=== PATIENT | male | born 2005 | race Two or more races ===

== ENCOUNTER 2025-05-05 22:32 | Emergency (ER) | payer MEDICAID, SELFPAY ==
[2025-05-05 22:34] VITALS: BMI 34.7
[2025-05-05 23:25] VITALS: BP 116/66; PULSE 83; RESP 18; TEMP 36.6; O2SAT 99
--- NOTE | 2025-05-05 23:37 | EDNOTE_ITS ---
ED Abdominal Pain RME/HPI General Chief Complaint: Abdominal Pain Stated complaint: LEFT FLANK PAIN Time seen by provider: 05/05/25 23:40 Arrival date/time: 05/05/25 22:32 RME / HPI RME / HPI narrative: This section includes all my notes and documentations, including HPI, PE, and ED course. Claudio Neal MD HPI: 19yo male with no significant past medical or surgical history presents to the ED for complaints of left flank pain, nausea, and vomiting for the last few days. No radiation or migration. Patient's pain has been progressively getting worse. He is not on any medications. No other complaints reported. ROS: All negative except as documented in HPI. Physical Exam: General: Alert and oriented. Actively vomiting. Appears uncomfortable. Eyes: Conjunctivae and lids clear. ENT: No nasal congestion. Neck: Supple. Heart: RRR. Lungs: No respiratory distress. Good air movement. No rhonchi, wheezing, rales. Abdomen: Soft and nontender. Normal bowel sounds. No distension. No rebound or guarding. Back: No CVA tenderness. Skin: Warm and dry. Neuro: Alert and oriented X 3. I reviewed all diagnostic test results. My review of the CT abdomen pelvis report is 3 mm obstructing calculus in the left proximal ureter causing mild hydroureteronephrosis. Blood tests were unremarkable. UA remarkable for hematuria. At this point, diagnoses include kidney stone on the left side. Treatment here included Toradol, morphine, Zofran, NS, and Flomax. Significant improvement noted. Urine strainer dispensed. Recommended a trial of outpatient treatment. Based on my best medical judgment, made decision no further evaluation or treatment indicated at this time. Patient understands and agrees to the discharge instructions customized and printed, see below. Discharge Instructions from Dr. Neal: --Your symptoms are due to a 3 mm right kidney stone. It is outside the kidney. It is trying to pass into your bladder. --Increase oral fluid to flush your kidneys. Maintain clear urine. if it's dark or yellow then increase oral fluid. If you don't do this, you won't pass it. --Take Flomax to help decrease spasms to increase the chance of passing it. --Take Zofran as needed for nausea or vomiting. --Take Ketorolac/Toradol for pain control. And Tylenol with Codeine. If you are in severe pain, you won't pass it. --Strain your urine so you can catch the stone when you pass it. --See a private doctor on 05/08/2025 for recheck. Take the stone with you for analysis because certain stones can be prevented. If you didn't pass it, ask for referral to see urologist. Who will take the stone out for you. --Seek immediate medical care with fever over 100.4, persistent vomiting despite Zofran, intolerable pain, or with any concerns. Claudio Neal MD Related Data Home Medications ?Medication ?Instructions ?Recorded ?Confirmed albuterol sulfate 90 mcg/actuation 2 puff inhalation Q ID Asthma 06/08/1906/08 aerosol inhaler (ProAir HFA) Previous Rx's ?Medication ?Instructions ?Recorded acetaminophen 300 mg-codeine 30 mg 2 tab PO Q8H PRN pa in #20 tabs 05/06/25 tablet ketorolac 10 mg tablet 10 mg PO Q8H PRN pain 5 days #10 05/06/25 tabs ondansetron 4 mg disintegrating 4 mg PO TID PRN nausea and 05/06/25 tablet vomiting 30 days #10 tabs tamsulosin 0.4 mg capsule (Flomax) 0.4 mg PO QDAY 7 da ys #7 caps 05/06/25 Allergies Allergy/AdvReac Type Severity Reaction Status Date / Time No Known Allergies Allergy Verified 06/16/22 12:31 Review of Systems Review of Systems Systems Reviewed: All systems reviewed, normal except as documented Past Medical History Past Medical History CARDIAC: Negative Congestive Heart Failure RESPIRATORY: Negative Chronic Obstructive Pulmonary Disease (COPD) GENITOURINARY: Negative Renal Disease ENDOCRINE: Negative Diabetes Mellitus Type 1 or Diabetes Mellitus Type 2 Social History SMOKING STATUS: Never smoker ED Exam Narrative Physical exam: As noted in HPI. Course Quality Measures none Orders Category Date Time Status Miscellaneous Nursing Order NOW Care 05/06/25 03:07 Active Saline [Insert IV] NOW Care 05/05/25 23:[address] abdomen pelvis wo con Stat Exams 05/05/25 23:39 Taken Amylase Stat Lab 05/05/25 23:55 Completed Bilirubin,Direct Stat Lab 05/05/25 23:55 Completed CBC Stat Lab 05/05/25 23:55 Completed CMP [Comprehensive Metabolic Panel] Stat Lab 05/05/25 23:55 Completed Lipase Stat Lab 05/05/25 23:55 Completed Magnesium Stat Lab 05/05/25 23:55 Completed UA, C/S IF [Urinalysis, C/S if Indicated] Stat Lab 05/06/25 01:32 Completed Morphine Inj Med 05/05/25 23:38 Discontinued 4 mg IVP X1 ONE Ondansetron Inj [Zofran Inj] Med 05/05/25 23:38 Discontinued 4 mg IVP X1 ONE Sodium Chloride 0.9% 1000 ml [Ns] 1,000 ml Med 05/05/25 23:38 Discontinued IV 999 mls/hr Sodium Chloride 0.9% 1000 ml [Ns] 1,000 ml Med 05/06/25 02:08 Discontinued IV 999 mls/hr Tamsulosin HCl [Flomax] Med 05/06/25 03:18 Discontinued 0.4 mg PO X1 ONE Vital Signs Vital signs: Vital Signs Temperature 98 F 05/05/25 23:25 Pulse Rate 83 05/05/25 23:25 Respiratory Rate 18 05/05/25 23:25 Blood Pressure 116/66 05/05/25 23:25 Pulse Oximetry (%) 99 05/05/25 23:25 Oxygen Delivery Method Room Air 05/05/25 23:25 Abdominal Pain MDM MDM Narrative MDM Narrative:: 19yo male with no significant past medical or surgical history presents to the ED for complaints of left flank pain, nausea, and vomiting for the last few days. No radiation or migration. Patient's pain has been progressively getting worse. He is not on any medications. No other complaints reported. Patient data External records reviewed:: [facility] previous records (Per chart review, patient was seen here on 06/17/22 for tachycardia.) Clinical information provided by:: patient Social determinants that could affect healthcare access:: none Patient has the following chronic illnesses:: none How is presenting disease/condition affected by chronic disease/condition?: no chronic disease Evaluation data The following diagnostics were reviewed and interpreted by me:: lab results and radiology exam(s) Lab and/or radiology exams considered but not ordered:: none Interpretation Summary: I reviewed all diagnostic test results. My review of the CT abdomen pelvis report is 3 mm obstructing calculus in the left proximal ureter causing mild hydroureteronephrosis. Blood tests were unremarkable. UA remarkable for hematuria. Medications / Prescriptions Medications or Prescriptions considered but not ordered:: none Medication administrations:: Medication Administration History Discontinued Medications Sodium Chloride (Ns) 1,000 mls @ 999 mls/hr IV .Q1H1M ONE Stop: 05/06/25 00:38 Last Infusion: 05/06/25 01:25 Dose: Infused Documented By: Admin: 05/06/25 00:04 Dose: 999 mls/hr Documented By: PALOMO Sodium Chloride (Ns) 1,000 mls @ 999 mls/hr IV .Q1H1M ONE Stop: 05/06/25 03:08 Last Admin: 05/06/25 02:37 Dose: 999 mls/hr Documented By: PALOMO Morphine Sulfate (Morphine Sulf Inj 10 Mg/Ml Vial) 4 mg IVP X1 ONE Stop: 05/05/25 23:39 Last Admin: 05/06/25 00:04 Dose: 4 mg Documented By: PALOMO Ondansetron HCl (Ondansetron Inj 2 Mg/Ml Inj 2 Ml) 4 mg IVP X1 ONE; Protocol Stop: 05/05/25 23:39 Last Admin: 05/06/25 00:03 Dose: 4 mg Documented By: PALOMO Tamsulosin HCl (Tamsulosin Hcl 0.4 Mg Capsule) 0.4 mg PO X1 ONE Stop: 05/06/25 03:19 Morphine, Zofran, NS, Flomax, Toradol. Consultations Consultation(s) initiated? (list below): No Diagnosis Differential diagnosis abdominal pain: acute appendicitis, calculus of kidney, constipation, pancreatitis and small bowel obstruction Most likely diagnosis given after review of the tests above:: Left kidney stone Admission Indicated Admission indicated?: not indicated Explain why admission is indicated or not indicated:: With significant improvement and no condition needing emergent intervention, there was no indication for admission. Admission Request Was there a request for admission?: No Disposition Plan Disposition Plan: Discharge Discharge Attestation Discharge Attestation: The patient and all family members were given an opportunity to ask questions and understood the discharge instructions. Discharge instructions specifically effects, indications for sooner follow up or return to the emergency department, and the expected course of current diagnosis. Patient condition: Stable Discharge Plan Plan Patient Disposition: HOME (Self Care) Prescriptions/Referrals Prescriptions/Med Rec: New acetaminophen-codeine 300-30 mg tablet 2 tab PO Q8H MDD 6 PRN (Reason: pain) Qty: 20 0RF ketorolac 10 mg tablet 10 mg PO Q8H PRN (Reason: pain) 5 Days Qty: 10 0RF ondansetron 4 mg tablet,disintegrating 4 mg PO TID PRN (Reason: nausea and vomiting) 30 Days Qty: 10 0RF tamsulosin [Flomax] 0.4 mg capsule 0.4 mg PO QDAY 7 Days Qty: 7 0RF No Action albuterol sulfate [ProAir HFA] 90 mcg/actuation Hfa Aerosol Inhaler 2 puff INHALATION QID Problem List Clinical Impression: Kidney stone on left side Patient/Caregiver Discharge Instructions Discharge Activity: activity as tolerated Education Materials: ED Kidney Stone w/ Colic Additional Instructions: Discharge Instructions from Dr. Neal: --Your symptoms are due to a 3 mm right kidney stone.? It is outside the kidney.? It is trying to pass into your bladder.? --Increase oral fluid to flush your kidneys.? Maintain clear urine. if it's dark or yellow then increase oral fluid.? If you don't do this, you won't pass it.? --Take Flomax to help decrease spasms to increase the chance of passing it.? --Take Zofran as needed for nausea or vomiting. --Take Ketorolac/Toradol for pain control.? And Tylenol with Codeine.? If you are in severe pain, you won't pass it.?? --Strain your urine so you can catch the stone when you pass it.? --See a private doctor on 05/08/2025 for recheck. Take the stone with you for analysis because certain stones can be prevented.? If you didn't pass it, ask for referral to see urologist.? Who will take the stone out for you. --Seek immediate medical care with fever over 100.4, persistent vomiting despite Zofran, intolerable pain, or with any concerns.?? Print Language: Welsh Stand Alone Forms: Anna Award Info., Patient Portal Info Letter
--- NOTE | 2025-05-05 23:39 | XR_ITS ---
Examination: CT abdomen and pelvis without contrast. Coronal 3-D reconstructions. Sagittal 2-D reconstructions. Date and time of exam:May 06, 2025 0143 hours INDICATIONS: Left-sided flank pain beginning 3 days ago CTDI: vol (mGy): 9.55 DLP: (mGycm): 585 Technique: Axial images of the abdomen have been obtained, 3 mm slice thickness Intravenous contrast material has not been administered. Low dose protocols were performed. One or more of the following dose reduction techniques were used; automated exposure control, adjustment of the mA and/or KV according to patient size, use of iterative reconstruction technique. Findings: 6 mm low-density liver lesion likely cyst No gallstones Spleen not enlarged No pancreatic mass Minimal left hydronephrosis, 3 mm proximal left ureteral calculus Aorta normal size Normal appendix No bladder mass or bladder calculi L5-S1 3 mm central lumbar disc bulge IMPRESSION: Minimal left hydronephrosis, 3 mm proximal left ureteral calculus
[2025-05-06] MEDS: ONDANSETRON INJ 2 MG/ML INJ 2 ML 4 MG IVP (00:03)
[2025-05-06] MEDS: SODIUM CHLORIDE 0.9% 1000 ML 1,000 ML 999 ML IV ×2 (00:04→02:37)
[2025-05-06] MEDS: MORPHINE SULF INJ 10 MG/ML VIAL 4 MG IVP (00:04)
[2025-05-06 00:39] LABS: Basophils # (Auto) 0.1 Thou/mm3 (0.0-0.2); Basophils % (Auto) 0 % (0-2.5); Eosinophils # (Auto) 0.1 Thou/mm3 (0.0-0.5); Eosinophils % (Auto) 0 % (0-10); Hematocrit 39.6 % (41.0-53.0); Hemoglobin 14.4 g/dL (13.5-16.0); Immature Granulocytes Auto 0.09 Thou/mm3 (0.00-0.00); Lymphocytes # (Auto) 2.7 Thou/mm3 (1.0-4.8); Lymphocytes % (Auto) 18 % (10-50); Mean Corpuscular HGB Conc 36.4 g/dl (31.0-37.0); Mean Corpuscular Hemoglobin 31.7 pg (25.0-35.0); Mean Corpuscular Volume 87 fL (80-100); Monocytes # (Auto) 0.8 Thou/mm3 (0.0-0.8); Monocytes % (Auto) 5 % (0-12); Neutrophils # (Auto) 11.1 Thou/mm3 (1.8-7.7); Neutrophils % (Auto) 75 % (37-80); Nucleated Red Blood Cell # 0.00 Thou/mm3 (0.00-0.00); Nucleated Red Blood Cell % 0 /100 WBC (0); Platelet Count 321 Thou/mm3 (140-440); RDW Standard Deviation 40.2 fL (35.1-43.9); Red Blood Count 4.54 Miln/mm3 (4.50-5.90); White Blood Count 14.8 Thou/mm3 (3.8-10.6)
[2025-05-06 00:53] LABS: Alanine Aminotransferase 25 U/L (10-49); Albumin, Serum 4.6 gm/dL (3.5-5.0); Albumin/Globulin Ratio 1.7 (1.2-2.2); Alkaline Phosphatase 87 U/L (46-116); Amylase 88 U/L (30-118); Anion Gap 11 (7-16); Aspartate Amino Transferase 34 U/L (0-34); BUN/Creatinine Ratio 11 Ratio (12-20); Bilirubin,Direct 0.2 mg/dL (0.0-0.3); Bilirubin,Total 0.4 mg/dL (0.3-1.2); Blood Urea Nitrogen 12 mg/dL (9-23); Calcium 9.1 mg/dL (8.3-10.6); Calcium (Corrected) 9.1 mg/dL (8.5-10.1); Carbon Dioxide 26.7 mMol/L (20.0-31.0); Chloride 104 mMol/L (98-107); Creatinine (Component) 1.1 mg/dL (0.6-1.3); Estimated Creatinine Clearance 108.4 mL/min (>60); Globulin 2.7 gm/dL (2.3-3.5); Glucose 118 mg/dL (74-106); Lipase 30 U/L (12-53); Magnesium 1.6 mg/dL (1.6-2.6); Osmolality,Calculated 283 (275-295); Potassium 4.0 mMol/L (3.4-5.1); Sodium 142 mMol/L (136-145); Total Protein 7.3 gm/dL (5.7-8.2); eGFR > 60 See Note
--- NOTE | 2025-05-06 02:49 | PRELIM_ITS ---
CT scan of the abdomen and pelvis without intravenous contrast (axial sections with sagittal and coronal reformats) May 06, 2025 0143 hours Clinical History: Left flank pain Comparison: No prior study is available for comparison. Findings: The lung bases are clear. A small hypodense lesion is noted in the liver, which is too small to characterize. There is a 3 mm obstructing calculus in the left proximal ureter (axial images 101/288) causing mild hydroureteronephrosis and periureteric/perinephric fat stranding. The gallbladder, pancreas, spleen, right kidney and adrenals are unremarkable on this noncontrast study. No evidence of bowel obstruction. A moderate amount of fecal material is present in the colon. The appendix is within normal limits (coronal image 54- 64/155). There is no mesenteric or retroperitoneal adenopathy. The urinary bladder is unremarkable. There is no free fluid or free air. The osseous structures are unremarkable. Impression: A 3 mm obstructing calculus in the left proximal ureter causing mild hydroureteronephrosis. Recommend clinical correlation. Other findings as described above. Report Electronically Signed By: Carter Castellano 05/06/2025 2:48:36 AM [EST]
[2025-05-06 02:50] LABS: Collection Type, Urine Clean Catch; Squamous Epithelial Cell,Urine 0 /hpf (0-5)
[2025-05-06 03:19] LABS: Bacteria,Urine Rare; Bilirubin,Urine Negative (Negative); Blood,Urine 3+ (Negative); Clarity,Urine Clear (Clear/Hazy); Color,Urine Colorless (Lt Yel-Yel); Culture Indicated,Urine Not Indicated; Glucose, Urine Negative (Negative); Ketones,Urine Trace (Negative); Leukocyte Esterase,Urine Negative (Negative); Nitrite,Urine Negative (Negative); PH,Urine 7.0 (5.0-7.0); Protein,Urine Negative (Neg - Trace); RBC,Urine 4 /hpf (0-3); Specific Gravity,Urine 1.009 (1.001-1.035); Urobilinogen,Urine Negative mg/dL (0.0-1.0); WBC,Urine 1 /hpf (0-5)
[2025-05-06] MEDS: TAMSULOSIN HCL 0.4 MG CAPSULE PO (04:57)
[2025-05-06 05:00] VITALS: BP 131/88; PULSE 80; RESP 18; TEMP 36.7; O2SAT 98
== END 2025-05-06 05:33 | disposition home or self-care (01) ==
LOC: SERX 05-06 03:57
PROVIDERS: Emergency Provider Emergency Medicine
DX: N13.2 Hydronephrosis with renal and ureteral calculous obstruction (principal)
CPT/HCPCS: 36415; 74176; 80053; 81001; 82150; 82248; 83690; 83735; 85025; 96361; 96374; 96375; J2270; J2405; J7030; A9270

== ENCOUNTER 2025-09-08 15:29 | Emergency (ER) | payer MEDICAID, SELFPAY ==
[2025-09-08 15:40] VITALS: BP 140/86; PULSE 82; RESP 20; TEMP 36.9; O2SAT 97; BMI 31.3
--- NOTE | 2025-09-08 15:48 | XR_ITS ---
Examination: CT abdomen and pelvis without contrast. Coronal 3-D reconstructions. Sagittal 2-D reconstructions. Date and time of exam: September 08, 2025, 1633 hours, comparison May 06, 2025 INDICATIONS: Left upper abdominal pain beginning 5 days ago, history kidney stones CTDI: vol (mGy): 8.51 DLP: (mGycm): 553 Technique: Axial images of the abdomen have been obtained, 3 mm slice thickness Intravenous contrast material has not been administered. Low dose protocols were performed. One or more of the following dose reduction techniques were used; automated exposure control, adjustment of the mA and/or KV according to patient size, use of iterative reconstruction technique. Findings: 6 mm liver cyst No Intermatic biliary duct dilatation No gallstones Spleen not enlarged No pancreatic or adrenal mass No renal or ureteral calculi, no hydronephrosis Aorta normal size Small fat-containing umbilical hernia Normal appendix No bowel obstruction or diverticulitis Normal seminal vesicles, no prostatomegaly Urinary bladder intact No inguinal hernias IMPRESSION: No renal or ureteral calculi, no hydronephrosis Normal appendix No bowel obstruction diverticulitis or free air
--- NOTE | 2025-09-08 15:48 | XR_ITS ---
EXAMINATION: PA chest single view TECHNIQUE: Upright PA chest single view Date and time: September 08, 2025, 1623 hours, comparison June 16, 2022 INDICATIONS: Shortness of breath chest pain today. FINDINGS: Normal heart size Lungs are clear. Osseous structures are intact. IMPRESSION: No active disease
--- NOTE | 2025-09-08 15:54 | PD.EDRME ---
Rapid Medical Screening Exam [facility] Arrival date/time: 09/08/25 15:29 20-year-old male with no known medical history presents to the emergency room with a chief complaint of left upper quadrant abdominal pain that radiates to his left ribs x 3 days I have greeted and performed a focused initial assessment of this patient. A comprehensive ED assessment and evaluation of the patient, analysis of all test results, and completion of the medical decision making process will be conducted by additional ED providers. Chief Complaint: Nausea/Vomiting/Diarrhea Time Seen by Provider: 09/08/25 15:34 Vital signs: Vital Signs Temperature 98.5 F 09/08/25 15:40 Pulse Rate 82 09/08/25 15:40 Respiratory Rate 20 09/08/25 15:40 Blood Pressure 140/86 H 09/08/25 15:40 Pulse Oximetry (%) 97 09/08/25 15:40 Oxygen Delivery Method Room Air 09/08/25 15:40 Vital signs reviewed by provider: Yes Exam: Left upper quadrant abdominal pain with palpation Strong and regular rhythm S1 and S2 noted. Clear bilateral lung sounds Clinical Impression: Pancreatitis/gastroenteritis
[2025-09-08 16:38] LABS: Basophils # (Auto) 0.1 Thou/mm3 (0.0-0.2); Basophils % (Auto) 0 % (0-2.5); Eosinophils # (Auto) 0.0 Thou/mm3 (0.0-0.5); Eosinophils % (Auto) 0 % (0-10); Hematocrit 46.4 % (41.0-53.0); Hemoglobin 15.8 g/dL (13.5-16.0); Immature Granulocytes Auto 0.09 Thou/mm3 (0.00-0.00); Lymphocytes # (Auto) 1.7 Thou/mm3 (1.0-4.8); Lymphocytes % (Auto) 15 % (10-50); Mean Corpuscular HGB Conc 34.1 g/dl (31.0-37.0); Mean Corpuscular Hemoglobin 31.1 pg (25.0-35.0); Mean Corpuscular Volume 91 fL (80-100); Monocytes # (Auto) 0.7 Thou/mm3 (0.0-0.8); Monocytes % (Auto) 6 % (0-12); Neutrophils # (Auto) 9.1 Thou/mm3 (1.8-7.7); Neutrophils % (Auto) 77 % (37-80); Nucleated Red Blood Cell # 0.00 Thou/mm3 (0.00-0.00); Nucleated Red Blood Cell % 0 /100 WBC (0); Platelet Count 416 Thou/mm3 (140-440); RDW Standard Deviation 41.9 fL (35.1-43.9); Red Blood Count 5.08 Miln/mm3 (4.50-5.90); White Blood Count 11.8 Thou/mm3 (3.8-10.6)
[2025-09-08] MEDS: ONDANSETRON ODT 4 MG TABRAP PO (16:48)
[2025-09-08 16:56] LABS: Alanine Aminotransferase 54 U/L (10-49); Albumin, Serum 5.1 gm/dL (3.5-5.0); Albumin/Globulin Ratio 2.2 (1.2-2.2); Alkaline Phosphatase 89 U/L (46-116); Anion Gap 12 (7-16); Aspartate Amino Transferase 42 U/L (0-34); BUN/Creatinine Ratio 10 Ratio (12-20); Bilirubin,Total 0.5 mg/dL (0.3-1.2); Blood Urea Nitrogen 9 mg/dL (9-23); Calcium 8.9 mg/dL (8.3-10.6); Calcium (Corrected) 8.9 mg/dL (8.5-10.1); Carbon Dioxide 28.3 mMol/L (20.0-31.0); Chloride 102 mMol/L (98-107); Creatinine (Component) 0.9 mg/dL (0.6-1.3); Estimated Creatinine Clearance 133.8 mL/min (>60); Globulin 2.3 gm/dL (2.3-3.5); Glucose 117 mg/dL (74-106); Lipase 22 U/L (12-53); Osmolality,Calculated 282 (275-295); Potassium 4.0 mMol/L (3.4-5.1); Sodium 142 mMol/L (136-145); Total Protein 7.4 gm/dL (5.7-8.2); eGFR > 60 See Note
--- NOTE | 2025-09-08 17:11 | EDNOTE_ITS ---
Nausea/Vomit./Diarrhea-RME/HPI General Chief complaint: Nausea/Vomiting/Diarrhea Stated complaint: VOMITING X 1 WK Time Seen by Provider: 09/08/25 15:34 Source: patient Arrival date/time: 09/08/25 15:29 20-year-old male with no known medical history presents to the emergency room with a chief complaint of vomiting and left upper quadrant abdominal pain x 1 week. Mode of arrival: ambulatory Limitations: no limitations RME / HPI RME / HPI Narrative: 09/08/25 15:29 20-year-old male with no known medical history presents to the emergency room with a chief complaint of left upper quadrant abdominal pain that radiates to his left ribs x 3 days I have greeted and performed a focused initial assessment of this patient. A comprehensive ED assessment and evaluation of the patient, analysis of all test results, and completion of the medical decision making process will be conducted by additional ED providers. Exam: Left upper quadrant abdominal pain with palpation Strong and regular rhythm S1 and S2 noted. Clear bilateral lung sounds Impression: Pancreatitis/gastroenteritis Related Data Home Medications ?Medication ?Instructions ?Recorded ?Confirmed albuterol sulfate 90 mcg/actuation 2 puff inhalation Q ID Asthma 06/08/19 06/08/19 aerosol inhaler (ProAir HFA) Previous Rx's ?Medication ?Instructions ?Recorded acetaminophen 300 mg-codeine 30 mg 2 tab PO Q8H PRN pa in #20 tabs 05/06/25 tablet ondansetron 4 mg disintegrating 4 mg PO Q8H PRN nausea and 09/08/25 tablet vomiting #14 tabs Allergies Allergy/AdvReac Type Severity Reaction Status Date / Time No Known Allergies Allergy Verified 09/08/25 15:31 Review of Systems Review of Systems Systems Reviewed: All systems reviewed, normal except as documented Constitutional Constitutional: Reports system reviewed and no additional complaints, except as documented, Denies fatigue, Denies fever(s), Denies headache(s) and Denies weakness Eyes Eyes: Reports system reviewed and no additional complaints, except as documented, Denies blurry vision and Denies change in vision ENT Ears, Nose, Mouth, and Throat: Reports system reviewed and no additional complaints, except as documented, Denies otalgia, Denies headache(s), Denies nasal congestion, Denies throat swelling and Denies vertigo Cardiovascular Cardiovascular: Reports system reviewed and no additional complaints, except as documented, Denies chest pain, Denies dyspnea and Denies dyspnea on exertion Respiratory Respiratory: Reports system reviewed and no additional complaints, except as documented, Denies chest congestion, Denies cough, Denies dyspnea, Denies dyspnea on exertion and Denies wheezing Gastrointestinal Gastrointestinal: Reports system reviewed and no additional complaints, except as documented, Reports abdominal pain, Reports cramping, Reports nausea and Reports vomiting Genitourinary Genitourinary: Reports system reviewed and no additional complaints, except as documented, Denies dysuria and Denies hematuria Musculoskeletal Musculoskeletal: Reports system reviewed and no additional complaints, except as documented and Denies back pain Integumentary/Breasts Skin/Breast: Reports system reviewed and no additional complaints, except as documented and Denies wounds Neurologic Neurologic: Reports system reviewed and no additional complaints, except as documented, Denies confusion, Denies headache(s), Denies lack of coordination, Denies vertigo and Denies weakness Psychiatric Psychiatric: Reports system reviewed and no additional complaints, except as documented, Denies anxiety, Denies confusion, Denies depression, Denies paranoia, Denies suicidal ideation and Denies tactile hallucinations Endocrine Endocrine: Reports system reviewed and no additional complaints, except as documented and Denies fatigue Hematologic/Lymphatic Hematologic/Lymphatic: Reports system reviewed and no additional complaints, except as documented and Denies lymphadenopathy Allergic/Immunologic Allergic/Immunologic: Reports system reviewed and no additional complaints, except as documented, Denies throat swelling, Denies urticaria and Denies wheezing Past Medical History Past Medical History CARDIAC: Negative Congestive Heart Failure RESPIRATORY: Negative Chronic Obstructive Pulmonary Disease (COPD) GENITOURINARY: Negative Renal Disease ENDOCRINE: Negative Diabetes Mellitus Type 1 or Diabetes Mellitus Type 2 Social History SMOKING STATUS: Current every day smoker ED Exam General Limitations: Present no limitations General appearance: Present alert and in no apparent distress Head Head exam: Present atraumatic Eye Eye exam: Present normal appearance, PERRL and EOMI ENT ENT exam: Present normal exam, normal oropharynx and mucous membranes moist Neck Neck exam: Present normal inspection, full ROM and trachea midline Chest Chest inspection: Present normal inspection and symmetric chest wall rise Respiratory Respiratory exam: Present normal lung sounds bilaterally Cardiovascular Cardiovascular exam: Present regular rate, normal rhythm and normal heart sounds Abdominal Exam Abdominal exam: Present soft, tenderness and normal bowel sounds; Absent Pink's sign or tenderness at McBurney's Point Abdominal tenderness: Present LUQ and mild Extremities Exam Extremities exam: Present normal inspection and full ROM Back Exam Back exam: Present normal inspection and full ROM Neurological Exam Neurological exam: Present alert, oriented X3 and CN II-XII intact Psychiatric Psychiatric exam: Present normal affect and normal mood Skin Skin exam: Present warm, dry, intact and normal color Course Quality Measures none Orders Category Date Time Status CT abdomen pelvis wo con Stat Exams 09/08/25 15:48 Completed XR chest 1V portable Stat Exams 09/08/25 15:48 Completed CBC Stat Lab 09/08/25 16:05 Completed CMP [Comprehensive Metabolic Panel] Stat Lab 09/08/25 16:05 Completed Lipase Stat Lab 09/08/25 16:05 Completed UA [Urinalysis] Stat Lab 09/08/25 15:48 Ordered Urine Culture Stat Lab 09/08/25 15:48 Ordered Ondansetron Odt [Zofran Odt] Med 09/08/25 15:48 Discontinued 4 mg PO X1 ONE Vital Signs Vital signs: Vital Signs Temperature 98.5 F 09/08/25 15:40 Pulse Rate 82 09/08/25 15:40 Respiratory Rate 20 09/08/25 15:40 Blood Pressure 140/86 H 09/08/25 15:40 Pulse Oximetry (%) 97 09/08/25 15:40 Oxygen Delivery Method Room Air 09/08/25 15:40 Nausea/Vomiting/Diarrhea MDM Narrative MDM Narrative:: 20-year-old male with no known medical history presents to the emergency room with a chief complaint of vomiting and left upper quadrant abdominal pain x 1 week. Patient is hemodynamically stable and in no apparent distress Physical examination shows tenderness and pain to the left upper quadrant with palpation. This pain radiates up to the left upper rib cage. There is no right lower quadrant or right upper quadrant tenderness. CBC CMP were within normal limits. CT of the abdomen and pelvis were negative for any acute findings Patient was discharged and educated to follow-up with primary care provider in the next 24 to 48 hours and return to the emergency room for any evidence of worsening signs or symptoms Patient data External records reviewed:: [facility] [place] previous records Clinical information provided by:: patient Social determinants that could affect healthcare access:: none Patient has the following chronic illnesses:: No chronic illness How is presenting disease/condition affected by chronic disease/condition?: no chronic disease Evaluation data The following diagnostics were reviewed and interpreted by me:: lab results and radiology exam(s) Lab and/or radiology exams considered but not ordered:: Labs and radiology exams considered and ordered Interpretation Summary: CT abdomen and pelvis-Findings: 6 mm liver cyst No Intermatic biliary duct dilatation No gallstones Spleen not enlarged No pancreatic or adrenal mass No renal or ureteral calculi, no hydronephrosis Aorta normal size Small fat-containing umbilical hernia Normal appendix No bowel obstruction or diverticulitis Normal seminal vesicles, no prostatomegaly Urinary bladder intact No inguinal hernias IMPRESSION: No renal or ureteral calculi, no hydronephrosis Normal appendix No bowel obstruction diverticulitis or free air Medications / Prescriptions Medications / Prescriptions considered but not ordered:: Medication given Medication administrations:: Medication Administration History Discontinued Medications Ondansetron HCl (Ondansetron Odt 4 Mg Tabrap) 4 mg PO X1 ONE; Protocol Stop: 09/08/25 15:49 Last Admin: 09/08/25 16:48 Dose: 4 mg Documented By: Medication given Consultations Consultation(s) initiated? (list below): No Diagnosis Nausea Differential Diagnosis: food poisoning, gastroenteritis and dehydration Most likely diagnosis given after review of the tests above:: Gastroenteritis Admission Indicated Admission indicated?: not indicated Admission Request Was there a request for admission?: No Disposition Plan Disposition Plan: Discharge Discharge Attestation Discharge Attestation: The patient and all family members were given an opportunity to ask questions and understood the discharge instructions. Discharge instructions specifically effects, indications for sooner follow up or return to the emergency department, and the expected course of current diagnosis. Patient condition: Stable Discharge Plan Plan Patient Disposition: HOME (Self Care) Discharge Disposition comment: Stable Prescriptions/Referrals Prescriptions/Med Rec: New ondansetron 4 mg tablet,disintegrating 4 mg PO Q8H PRN (Reason: nausea and vomiting) Qty: 14 0RF No Action albuterol sulfate [ProAir HFA] 90 mcg/actuation Hfa Aerosol Inhaler 2 puff INHALATION QID acetaminophen-codeine 300-30 mg tablet 2 tab PO Q8H MDD 6 PRN (Reason: pain) Qty: 20 0RF Problem List Clinical Impression: Gastroenteritis Patient/Caregiver Discharge Instructions Education Materials: ED Gastroenteritis, Noninfectious Additional Instructions: Please follow-up with your primary care provider in the next [address] of your abdomen and pelvis was negative for any acute findings. Your blood work was within normal limits Medication was sent to your pharmacy to help you with your vomiting. For any evidence of worsening signs or symptoms return to emergency room immediately Print Language: [place] Stand Alone Forms: Anna Award Info., Work/School Release, Patient Portal Info Letter PA/MAIL SORTER AND DELIVERY Supervising Physician PA/MAIL [employer] DELIVERY Supervising Physician: Dr. Neal
== END 2025-09-08 17:33 | disposition home or self-care (01) ==
LOC: SERX 17:17
PROVIDERS: Emergency Provider Nurse Practitioner Family
DX: K52.9 Noninfective gastroenteritis and colitis, unspecified (principal); K76.89 Other specified diseases of liver; K42.9 Umbilical hernia without obstruction or gangrene
CPT/HCPCS: 36415; 71045; 74176; 80053; 81001; 83690; 85025; 87086; 99283; Q0162